=== PATIENT | male | born 1950 | race Caucasian/White ===

== ENCOUNTER 2020-12-04 11:02 | Observation (INO) | payer MEDICARE, SELFPAY ==
[2020-12-04] VITALS (7 sets, daily range): BP systolic 130–184; BP diastolic 64–85; PULSE 52–74; RESP 12–16; TEMP 36.5–36.8; O2SAT 96–99; BMI 36.0
--- NOTE | ~2020-12-04 | XR_ITS ---
EXAMINATION: XR retrograde pyelo w/stent RT EXAM DATE: 12/05/2020 13:23 INDICATION: Right-sided ureteral stone. TECHNIQUE: Fluoroscopy used during XR retrograde pyelo w/stent RT performed by Dr. Cedrick Cassidy MD, urologist. The radiologist Carter Boone M.D. dictating this report of the image(s) available wa s not present for the procedure. Total fluoroscopic time of 44 seconds. The DAP for this procedure was 1342 radcm2. A total of 118 images sent to PACS from the exam. Cine run(s) available for review . FINDINGS: Right ureter was cannulated, injected. Some gas bubbles were introduced. Mild right-sided caliectasis. A double-J ureteral stent was positioned. Correlate with procedure note. IMPRESSION: Mild right caliectasis. Stent in position. Reviewed, dictated and finalized at location B.
--- NOTE | ~2020-12-04 | XR_ITS ---
EXAMINATION: XR abdomen/kub 1V EXAM DATE: 12/05/2020 11:31 INDICATION: Right proximal ureteral stone. TECHNIQUE: Frontal projection of the upper abdomen, frontal projection lower abdomen/pelvis for inter pretation. Correlation is made to CT abdomen pelvis from 12/04/2020 FINDINGS: Correlating with yesterday's CT scan the right ureteral stone should projects more over th e right L4 transverse process assuming no change in position. Difficult to specifically identified on this exam. Nonobstructive bowel gas pattern. Lumbar spondylosis, thoracolumbar diffuse idiopathic sk eletal hyperostosis. IMPRESSION: Can't confidently identify right ureteral stone. Reviewed, dictated and finalized at location B.
--- NOTE | ~2020-12-04 | CT_ITS ---
EXAMINATION: CT abdomen pelvis wo con EXAM DATE: 12/04/2020 12:23 INDICATION: Right-sided pain, kidney stones. TECHNIQUE: Spiral CT of the abdomen and pelvis was performed without contrast. Axial, coronal and s agittal images of the abdomen and pelvis were reviewed. The dose-length product (DLP) for this exami [facility] was 479.85 mGy-cm. The exposure was tailored according to patient size (auto mA exposure cont rol), and iterative reconstruction (ASIR) was used as additional dose reduction technique. Comparison is made to prior examination from 03/27/2018. FINDINGS: Several pancreatic calcifications, consistent with chronic pancreatitis. Splenic granulomas . The liver, spleen, adrenal glands and pancreas are otherwise unremarkable. There is single gallsto ne within an otherwise unremarkable gallbladder. No evidence of obstructive biliary disease. There is 3 x 5 mm stone in the proximal aspect right ureter, mild obstructive nephropathy. No other g enitourinary calcifications identified. The prostate is unremarkable. The bladder is collapsed at t brown of imaging limiting evaluation. There is no retroperitoneal or pelvic lymphadenopathy. There i s mild scattered arteriosclerotic disease. The appendix is normal. There is moderate sigmoid colonic diverticulosis. There is no adjacent infla mmatory change to suggest diverticulitis. The stomach and small bowel are unremarkable. There is exp ected amount of colonic stool. No free intraperitoneal gas. The heart is normal in size. There a re no pericardial or pleural effusions. The lung bases are unremarkable. There are no osteoblastic or osteolytic lesions identified. Thoracic diffuse idiopathic skeletal hyperostosis. IMPRESSION: 1. Right proximal ureteral 3 x 5 mm stone, mild obstructive nephropathy. consultants would apprec iate baseline KUB. 2. Sigmoid diverticulosis. 3. Chronic pancreatitis. 4. Cholelithiasis. Reviewed, dictated and finalized at location A. IMPRESSION: 1. Right proximal ureteral 3 x 5 mm stone, mild obstructive nephropathy. co nsultants would appreciate baseline KUB. 2. Sigmoid diverticulosis. 3. Chronic pancreatitis. 4. Cholelithiasis.
--- NOTE | 2020-12-04 11:51 | ED.ABDPAIN ---
HPI - Abdominal Pain General Chief Complaint: Abdominal Pain Stated Complaint: KIDNEY STONE Time Seen by Provider: 12/04/20 11:44 Source: patient, family and RN notes reviewed Mode of arrival: ambulatory Limitations: no limitations History of Present Illness HPI narrative: Patient 70 years old white male presents with right flank pain that started few hours prior to arrival to the emergency room associated with nausea, pain comes in waves. History of kidney stone. Patient denies any fever chills, urinary symptoms. Patient is fully vaccinated for COVID-19. Related Data Allergies Allergy/AdvReac Type Severity Reaction Status Date / Time No Known Allergies Allergy Unverified 09/28/15 10:28 Review of Systems Review of Systems: CONSTITUTIONAL: Denies fever, chills, or sweats. EYES: Denies visual changes, redness, or discharge. ENT: Denies rhinorrhea, congestion, sore throat, or otalgia. CARDIOVASCULAR: Denies chest pain, palpitations, or edema. RESPIRATORY: Denies cough or dyspnea. GASTROINTESTINAL: Denies abdominal pain, nausea, vomiting, or diarrhea. GENITOURINARY: Denies dysuria or hematuria. SKIN: Denies rash or itching. MUSCULOSKELETAL: Denies back pain, joint pain, or myalgia. NEUROLOGIC: Denies headache, numbness, or weakness. PSYCHIATRIC: Denies anxiety or depression. Exam Narrative: General appearance: Well-developed, well-nourished Skin: Normal color Head: Normocephalic, nontraumatic Eyes: Clear conjunctiva ENT: Oropharynx normal, ears normal, nose normal Neck: Supple, nontender Chest and respiratory: Airway patent, no respiratory distress, no accessory muscle use Heart: Regular rate/rhythm Abdomen: Soft, right flank tenderness Vascular: Normal peripheral pulses, normal capillary refill. Musculoskeletal: Normal range of motion, nontender back Neurologic: Alert and oriented ?3, [employer] is normal as tested, no gross motor deficit Course Course Emergency Course: Stable Consultations Consultation #1: Cedric garcia Date: 12/04/20 Time: 14:40 Vital Signs Vital signs: Vital Signs Temperature 36.6 C 12/04/20 11:33 Pulse Rate 65 12/04/20 11:33 Respiratory Rate 14 12/04/20 11:33 Blood Pressure 184/85 H 12/04/20 11:33 Pulse Oximetry 98 12/04/20 11:33 Temperature 36.6 C 12/04/20 11:33 Pulse Rate 65 12/04/20 11:33 Respiratory Rate 14 12/04/20 11:33 Blood Pressure 184/85 H 12/04/20 11:33 Pulse Oximetry 98 12/04/20 11:33 MDM - Abdominal Pain MDM Narrative Medical decision making narrative: Kidney stone is my concern. Labs, CT abdomen pelvis without contrast, IV fluid, IV morphine and Zofran ordered Critical Care Time Critical Care Time Critical Care Time: Yes Total Critical Care Time: 35 Discharge Plan Discharge Clinical Impression: Ureterolithiasis Patient Disposition: Still a Patient Condition: Stable Instructions: Antibiotic Form Additional Instructions: Admit to hospitalist consult Dr. Kim Follow-up/Referrals: BERNARDINO OLGUIN [Other]
[2020-12-04 12:04] LABS: Basophils Absolute Auto 0.1 K/mm3 (0.0-0.1); Basophils Percent Auto 0.5 % (0.2-1.2); Eosinophils Absolute Auto 0.1 K/mm3 (0-0.3); Eosinophils Percent Auto 1.2 % (0-4.4); Hematocrit 46.9 % (42.0-52.0); Immature Granulocyte Absolute 0.03 K/mm3 (0.00-0.031); Immature Granulocyte Percent A 0.3 % (0-0.5); Lymphocytes Absolute Auto 0.89 K/mm3 (0.9-3.2); Lymphocytes Percent Auto 8.8 % (18.3-44.2); Mean Corpuscular HGB Conc 34.1 g/dl (32-36); Mean Corpuscular Hemoglobin 30.9 pg (26-34); Mean Corpuscular Volume 90.7 fl (80-100); Mean Platelet Volume 10.9 fl (7.4-10.4); Monocytes Absolute Auto 0.7 K/mm3 (0.1-0.6); Monocytes Percent Auto 6.7 % (2.6-8.5); Neutrophils Absolute Auto 8.3 K/mm3 (1.3-6.7); Neutrophils Percent Auto 82.5 % (45.5-73.1); Platelet Count Result 176 k/mm3 (150-375); Red Blood Count 5.17 M/mm3 (4.6-6.20); Red Cell Distribution Width 12.5 % (11.5-14.5); White Blood Count 10.1 K/mm3 (4.5-10.0)
[2020-12-04 12:10] LABS: Add Urine Microscopic? YES; Appearance Urine Clear (Clear); Bilirubin Urine Negative (Negative); Blood Urine 3+ (Negative); Color Urine Yellow (Yellow); Glucose Urine UA 1+ mg/dL (Negative); Ketones Urine 1+ mg/dL (Negative); Leukocyte Esterase Ur Negative LEU/UL (Negative); Mucus Urine Few /lpf; Nitrate Urine Negative (Negative); Protein Urine 2+ mg/dL (Negative); RBC Urine >75 /hpf (0-2); Specific Grav Ur 1.027 (1.001-1.035); Urobilinogen Urine Negative mg/dL (<2.0)
[2020-12-04] MEDS: ONDANSETRON INJ 4 MG/2 ML VIAL IV PUSH ×2 (12:11→15:11)
[2020-12-04] MEDS: MORPHINE SULFATE (*CRX) 4 MG/ML INJ IV PUSH (12:11)
[2020-12-04] MEDS: SODIUM CHLORIDE 0.9% IV 1,000 ML 999 ML IV CONT (12:12)
[2020-12-04 13:10] LABS: Anion Gap 8 mmol/L (8-16); Blood Urea Nitrogen 17 mg/dL (9-20); Calcium 8.9 mg/dL (8.4-10.2); Carbon Dioxide 22 mmol/L (22-30); Chloride 110 mmol/L (98-107); Estimated CRCL calculation 68 ml/min; Estimated Glomerular Filt Rate 60; Glucose 145 mg/dL (65-110); Potassium 4.2 mmol/L (3.4-5.0); Sodium 140 mmol/L (137-145)
[2020-12-04] MEDS: TAMSULOSIN HCL 0.4 MG CAPSULE PO (15:10)
[2020-12-04] MEDS: HYDROmorphone HCL INJ (*CRX) 1 MG/ML SYR 0.5 MG IV PUSH ×2 (15:11→19:40)
[2020-12-04] MEDS: KETOROLAC 15 MG/ML VIAL (*BKC) (15:12)
[2020-12-04] MEDS: SODIUM CHLORIDE 0.9% IV 1,000 ML 100 ML IV CONT (16:44)
--- NOTE | 2020-12-04 17:04 | PM.IMHP ---
H&P: HPI History of Present Illness Date/Time: 12/04/20 17:04 this is a 70-year-old male patient has had multiple kidney stones. Patient stated he had lithotripsy and ESWL in the past any believes he also had a stent. He has seen Dr. Coates as well as Dr. sam and Dr. Sepulveda. The patient came into the emergency room today with complaints of right flank pain that occurred around 2:00 a.m. this morning prior to arriving in the emergency room here. The patient stated that he is having crampy pain and it hurts worse when he moves. He is also nauseated but did not have any vomiting. If he lay still then the pain pretty much subsides. The patient stated that he has had this pain before when he has had his other kidney stones. Abdominal pelvis CT was read as: 1. Right proximal ureteral 3 x 5 mm stone, mild obstructive nephropathy. consultants would appreciate baseline KUB. 2. Sigmoid diverticulosis. 3. Chronic pancreatitis. 4. Cholelithiasis. The patient was given Flomax, dilaudid, Zofran, morphine and IV fluids. Urology has been consulted. Patient is being admitted to inpatient services date of service of 12/05/2019 Chief Complaint: Right flank pain Review of Systems Review of Systems: All systems reviewed & are unremarkable except as noted in HPI and below Constitutional: Constitutional: Reports as per HPI and Reports no additional constitutional complaints Eyes: Eyes: Reports as per HPI and Reports no additional eye complaints ENT: Reports system reviewed and no additional complaints, except as documented and Reports Normal hearing present Cardiovascular: Cardiovascular: Reports no additional cardiovascular complaints Respiratory: Respiratory: Reports no additional respiratory complaints and Reports no additional respiratory complaints Gastrointestinal: Gastrointestinal: Reports as per HPI and Reports no additional gastrointestinal complaints Musculoskeletal: Musculoskeletal: Reports no additional musculoskeletal complaints Integumentary/Breasts: Skin/Breast: Reports system reviewed and no additional complaints, except as docu and Reports as per HPI Neurologic: Reports system reviewed and no additional complaints, except as documented, Reports as per HPI and Reports Normal hearing present Psychiatric: Psychiatric: Reports no additional psychiatric complaints and Reports as per HPI Endocrine: Endocrine: Reports no additional endocrine complaints Hematologic/Lymphatic: Hematologic/Lymphatic: Reports no additional hematologic/lymphatic complaints Allergic/Immunologic: Allergic/Immunologic: Reports no additional allergic/immunologic complaints [facility] Past Medical History Medical History (Updated 12/04/20 @ 17:12 by Michelle Mcbride NP) Hyperlipidemia Surgical History Surgical History (Updated 12/04/20 @ 17:21 by Michelle Mcbride NP) H/O cystoscopy History of back surgery History of coronary artery bypass graft x 3 S/P foot surgery, right Family History Family History (Updated 12/04/20 @ 17:14 by Michelle Mcbride NP) Mother Breast cancer Father Acute myocardial infarction Sibling Cancer Social History Social History (Updated 12/04/20 @ 17:17 by Michelle Mcbride NP) Social History: The patient is and his is the durable power immigration attorney for healthcare. The patient desires to be a full code. The patient has 2 children. 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 The patient is a lifelong nonsmoker. He does not use any alcohol marijuana or illicit drugs. Smoking status: Never smoker Alcohol intake: never Substance use: never Living arrangements: with family Occupation/Education: retired Gender identity (if verbalized by the patient): Male Spiritual care concerns: No Meds Home Medications and Allergies Home Medications Medication Instructions Recorded Confirmed Type diclofenac sodium PO BID 12/04/20 History
--- NOTE | 2020-12-04 17:05 | PC.NURSE ---
Pt admitted to Chest pain center from the ER at 1625. No current complaints
--- NOTE | 2020-12-04 18:25 | PC.NURSE ---
Spoke with patients Raquel to provide update of patient status and phone numbers to unit and room.
[2020-12-05] VITALS (11 sets, daily range): BP systolic 141–177; BP diastolic 67–96; PULSE 57–86; RESP 12–21; TEMP 36.2–36.6; O2SAT 96–100
[2020-12-05] MEDS: SODIUM CHLORIDE 0.9% IV 1,000 ML 100 ML IV CONT (02:48)
[2020-12-05] MEDS: KETOROLAC 15 MG/ML VIAL (*BKC) IV PUSH (03:21)
[2020-12-05] MEDS: HYDROmorphone HCL INJ (*CRX) 1 MG/ML SYR 0.5 MG IV PUSH (04:10)
[2020-12-05 06:25] LABS: Lactic Acid Reflex 0.7 mmol/L (0.7-2.1)
[2020-12-05 06:26] LABS: Alanine Aminotransferase 19 U/L (4-50); Albumin Level 3.4 g/dL (3.5-5.1); Alkaline Phosphatase 81 U/L (38-126); Anion Gap 7 mmol/L (8-16); Aspartate Amino Transferase 35 U/L (17-59); Bilirubin,Total 0.9 mg/dL (0.2-1.3); Blood Urea Nitrogen 15 mg/dL (9-20); Calcium 8.3 mg/dL (8.4-10.2); Carbon Dioxide 24 mmol/L (22-30); Chloride 110 mmol/L (98-107); Estimated CRCL calculation 74 ml/min; Estimated Glomerular Filt Rate > 60; Glucose 128 mg/dL (65-110); Magnesium 2.2 mg/dL (1.6-2.3); Potassium 4.1 mmol/L (3.4-5.0); Sodium 141 mmol/L (137-145)
[2020-12-05 06:46] LABS: Basophils Percent Auto 0.4 % (0.2-1.2); Eosinophils Absolute Auto 0.2 K/mm3 (0-0.3); Eosinophils Percent Auto 2.2 % (0-4.4); Hematocrit 40.8 % (42.0-52.0); Hemoglobin 13.4 g/dL (14.0-18.0); Immature Granulocyte Absolute 0.04 K/mm3 (0.00-0.031); Immature Granulocyte Percent A 0.6 % (0-0.5); Immature Platelet Fraction Pct 6.9 % (0.9-11.2); Lymphocytes Absolute Auto 0.94 K/mm3 (0.9-3.2); Lymphocytes Percent Auto 13.7 % (18.3-44.2); Mean Corpuscular HGB Conc 32.8 g/dl (32-36); Mean Corpuscular Hemoglobin 30.2 pg (26-34); Mean Corpuscular Volume 92.1 fl (80-100); Mean Platelet Volume 11.3 fl (7.4-10.4); Monocytes Absolute Auto 0.7 K/mm3 (0.1-0.6); Monocytes Percent Auto 9.5 % (2.6-8.5); Neutrophils Absolute Auto 5.1 K/mm3 (1.3-6.7); Neutrophils Percent Auto 73.6 % (45.5-73.1); Platelet Count Result 137 k/mm3 (150-375); Red Blood Count 4.43 M/mm3 (4.6-6.20); Red Cell Distribution Width 12.4 % (11.5-14.5); White Blood Count 6.9 K/mm3 (4.5-10.0)
[2020-12-05 07:48] LABS: Free T4 Free Thyroxine Reflex 0.89 ng/dL (0.78-2.19)
--- NOTE | 2020-12-05 08:40 | WPDANESEPPF ---
Anes - Initial Pre Proc Eval Procedure: Operation Date: 12/05/20 14:30 Proposed Procedures p Cystoscopy, Right Ureteroscopy, Right Retrograde Pyelogram, Right Stone Extraction, Possible Right Stent Placement, - Cedrick Cassidy MD s Possible Holmium Laser Procedure - Cedrick Cassidy MD Date/Time: 12/05/20 08:40 Surgeon: Clyde Rosas MD Pre Op Diagnosis: R Ureterolithiasis, Proximal R Urteral Patient Data Age: 70 Gender: M Height: 1.83 m Weight: 120.5 kg Last Vital Signs Temp 36.6 C 12/05/20 07:32 Pulse 57 L 12/05/20 07:32 Resp 16 12/05/20 07:32 BP 141/73 H 12/05/20 07:32 Pulse Ox 96 12/05/20 07:32 Allergies Allergy/AdvReac Type Severity Reaction Status Date / Time No Known Allergies Allergy Unverified 09/28/15 10:28 Home Medications Medication Instructions Recorded Confirmed Type aspirin [Adult Aspirin] 325 mg PO DAILY 12/04/20 12/04/20 History diclofenac sodium 75 mg PO BID 12/04/20 12/04/20 History rosuvastatin [Crestor] 10 mg PO DAILY 12/04/20 12/04/20 History tamsulosin 0.4 mg PO DAILY 12/04/20 12/04/20 History Laboratory Tests 12/04/20 12/04/20 12/04/20 11:53 11:53 12:47 WBC 10.1 K/mm3 H K/mm3 (4.5-10.0) RBC 5.17 M/mm3 M/mm3 (4.6-6.20) Hgb 16.0 g/dL g/dL (14.0-18.0) Hct 46.9 % % (42.0-52.0) MCV 90.7 fl fl (80-100) MCH 30.9 pg pg (26-34) MCHC 34.1 g/dl g/dl (32-36) RDW 12.5 % % (11.5-14.5) Plt Count 176 k/mm3 k/mm3 (150-375) MPV 10.9 fl H fl (7.4-10.4) Immature Gran % (Auto) 0.3 % % (0-0.5) Neut % (Auto) 82.5 % H % (45.5-73.1) Lymph % (Auto) 8.8 % L % (18.3-44.2) Rich % (Auto) 6.7 % % (2.6-8.5) Eos % (Auto) 1.2 % % (0-4.4) Baso % (Auto) 0.5 % % (0.2-1.2) Lymph # (Auto) 0.89 K/mm3 L K/mm3 (0.9-3.2) Rich # (Auto) 0.7 K/mm3 H K/mm3 (0.1-0.6) Eos # (Auto) 0.1 K/mm3 K/mm3 (0-0.3) Baso # (Auto) 0.1 K/mm3 K/mm3 (0.0-0.1) Abs Immat Gran (auto) 0.03 K/mm3 K/mm3 (0.00-0.031) Absolute Neuts (auto) 8.3 K/mm3 H K/mm3 (1.3-6.7) Absolute Nucleated RBC 0.0 K/mm3 K/mm3 (0.0-0.012) Nucleated RBC % 0.0 % % (0.0-0.2) % Immature Plt Fraction Sodium 140 mmol/L mmol/L (137-145) Potassium 4.2 mmol/L mmol/L (3.4-5.0) Chloride 110 mmol/L H mmol/L (98-107) Carbon Dioxide 22 mmol/L mmol/L (22-30) Anion Gap 8 mmol/L mmol/L (8-16) BUN 17 mg/dL mg/dL (9-20) Creatinine 1.20 mg/dL mg/dL (0.7-1.3) Estim Creat Clear Calc 68 ml/min ml/min Estimated GFR 60 (59 - ) Glucose 145 mg/dL H mg/dL (65-110) Lactic Acid Calcium 8.9 mg/dL mg/dL (8.4-10.2) Magnesium Total Bilirubin AST ALT Alkaline Phosphatase Total Protein Albumin TSH (Reflex) Free T4 Total T3 Urine Color Yellow (Yellow) Urine Appearance Clear (Clear) Urine pH 7.0 (5.0-9.0) Ur Specific [place] 1.027 (1.001-1.035) Urine Protein 2+ mg/dL H mg/dL (Negative) Urine Glucose (UA) 1+ mg/dL H mg/dL (Negative) Urine Ketones 1+ mg/dL H mg/dL (Negative) Ur Blood (Man) 3+ H (Negative) Urine Nitrate Negative (Negative) Urine Bilirubin Negative (Negative) Urine Urobilinogen Negative mg/dL mg/dL (<2.0) Leukocyte Esterase Rfl Negative NOÉ/UL NOÉ/UL (Negative) Urine RBC >75 /hpf H /hpf (0-2) Urine WBC 7-9 /hpf H /hpf Urine Mucus Few /lpf H /lpf 12/05/20 12/05/20 12/05/20 06:01 06:01 06:01 WBC RBC
--- NOTE | 2020-12-05 10:19 | WPDUROPN2 ---
Progress Note: A&P Assessment and Plan (1) Calculus of proximal right ureter: Code(s): N20.1 - Calculus of ureter Status: Acute Assessment and Plan: Will plan for cystoscopy, right ureteroscopy, right stone extraction, right stent placement. He tells me he has a history of ureteral stricture on the right. This may complicate ureteroscopy. If I am not able to get the ureteral scope past the stricture I may have to simply leave ureteral stent with definitive stone management to follow. If all goes well he can likely discharge home today. He understands risks of bleeding, infection, damage to the urinary tract, inability of the stone, inability to place the stent. He agrees to proceed. (2) Hydronephrosis: Code(s): N13.30 - Unspecified hydronephrosis Status: Acute (3) Ureteral stricture: Code(s): N13.5 - Crossing vessel and stricture of ureter without hydronephrosis Status: Acute Subjective Subjective Date/Time Seen: 12/05/20 10:19 He states he has not passed stone. He is requiring pain medication to remain comfortable. I discussed observation with a trial of stone passage versus intervention. He opts for intervention in the form of ureteroscopy. Exam Const: General: cooperative, healthy appearing, alert and awake HENMT: Head: normal to inspection Eyes: General: appearance normal, both eyes and all related structures Resp: Effort & Inspection: normal respiratory effort and able to speak in complete sentences Back/Spine/Pelvis: Back: CVA tenderness Skin: General skin exam: normal color Neuro: General: patient oriented x3 Objective Data Vital Signs Vital Signs: Vital Signs - 24 hr 12/04/20 11:33 12/04/20 13:18 12/04/20 14:00 Temperature 97.8 F Pulse Rate 65 52 L 60 Respiratory Rate 14 14 12 Blood Pressure 184/85 H 130/70 Pulse Oximetry 98 99 99 12/04/20 16:22 12/04/20 18:43 12/04/20 20:00 Temperature 98.3 F Pulse Rate 60 63 Respiratory Rate 12 16 Blood Pressure 135/70 152/77 H Pulse Oximetry 98 97 97 12/04/20 23:15 12/05/20 07:32 12/05/20 08:00 Temperature 97.7 F 97.8 F Pulse Rate 74 57 L 57 L Respiratory Rate 16 16 16 Blood Pressure 160/64 H 141/73 H Pulse Oximetry 96 96 96 Intake/Output Intake/Output: Intake & Output 12/02/20 12/03/20 12/04/20 12/05/20 23:59 23:59 23:59 23:59 Intake Total 1410 1000 Output Total 550 450 Balance 860 550 Meds/Results Medications: Active Medications Generic Name Dose Route Start Last Admin Trade Name Freq PRN Reason Stop Dose Admin Diclofenac Sodium 1 applic 12/05/20 09:00 Diclofenac Sodium 1% 100 Gm Gel (*Bkc) TOPICAL QID LIDIA Fentanyl Citrate 25 mcg 12/05/20 08:42 Fentanyl Citrate Inj (*Crx) 100 Mcg/2 Ml Vial IV PUSH Q2M PRN Pain Hydromorphone HCl 0.5 mg 12/04/20 14:51 12/05/20 04:10 Hydromorphone Hcl Inj (*Crx) 1 Mg/Ml Syr IV PUSH 0.5 mg Q4H PRN Administration Pain Rated 7-10 Acetaminophen 650 mg in 65 mls @ 260 mls/hr 12/04/20 14:51 Ofirmev 650 Mg Ivpb IVPB 12/05/20 14:50 Q6H PRN Mild Pain (1-3) or Fever Sodium Chloride 1,000 mls @ 100 mls/hr 12/04/20 14:55 12/05/20 02:48 Normal Saline Iv IV CONT 100 mls/hr .Q10H LIDIA Administration Lactated Ringer's 1,000 mls @ 30 mls/hr 12/05/20 08:45 Lr - Lactated Ringers Iv IV CONT .Q24H LIDIA Lactated Ringer's 1,000 mls @ 30 mls/hr 12/05/20 08:45 Lr - Lactated Ringers Iv IV CONT .Q24H LIDIA Ketorolac Tromethamine 15 mg 12/04/20 14:50 12/05/20 03:21 Ketorolac 15 Mg/Ml Vial (*Bkc) IV PUSH 15 mg Q6H PRN Administration Pain Rated 4-6 Ondansetron HCl 4 mg 12/05/20 08:42 Ondansetron Inj 4 Mg/2 Ml Vial IV PUSH ONCE PRN Nausea Tamsulosin HCl 0.4 mg 12/05/20 09:00 Tamsulosin Hcl 0.4 Mg Capsule PO QAM [facility] Radiology Results: ITS Impressions Abdomen/Pelvis CT 12/04/20 12:38 IMPRESSION: 1. Right proxim
--- NOTE | 2020-12-05 10:22 | WPDHPUPDATE1 ---
History and Physical Update Update Date/Time: 12/05/20 10:22 History and Physical has been reviewed, including an updated exam of the patient. There are NO changes in the patient's condition. Risks, benefits, and alternatives have been discussed and questions answered. Patient agrees to proceed with procedure.
--- NOTE | 2020-12-05 11:05 | PM.IMPN ---
Progress Note: A&P Assessment and Plan (1) Ureterolithiasis: Code(s): N20.1 - Calculus of ureter Status: Acute Assessment and Plan: Continue with IV fluids. Continue with pain medication. Continue with Flomax. Urology has been consulted. Strain all urine. plan for cystoscopy w/ likely stent placement today appreciate post-op care recs scd for dvt ppx prior to procedure (2) Hyperlipidemia: Code(s): E78.5 - Hyperlipidemia, unspecified Status: Chronic Assessment and Plan: When his home doses available we can continue with this dosage at this time I do not know his dosage on the Crestor. We can resume that when his dosages available. (3) Calculus of proximal right ureter: Code(s): N20.1 - Calculus of ureter Status: Acute Additional Plan will discuss with urology regarding discharge plan - tomorrow vs later today based on their preference & pt's clinical course Time Spent With Patient Time with patient: less than 15 minutes Subjective Date/time seen: 12/05/20 11:05 no acute medical complaints resting post-op Review of Systems Review of Systems: All systems reviewed & are unremarkable except as noted in HPI and below Exam Const: General: no acute distress Neck: Neck: no JVD Resp: Effort & Inspection: normal respiratory effort Auscultation: clear to auscultation bilaterally Cardio: Rate: regular rate Rhythm: regular rhythm Objective Data Vital Signs Vital Signs: Vital Signs - 24 hr 12/04/20 11:33 12/04/20 13:18 12/04/20 14:00 Temperature 97.8 F Pulse Rate 65 52 L 60 Respiratory Rate 14 14 12 Blood Pressure 184/85 H 130/70 Pulse Oximetry 98 99 99 12/04/20 16:22 12/04/20 18:43 12/04/20 20:00 Temperature 98.3 F Pulse Rate 60 63 Respiratory Rate 12 16 Blood Pressure 135/70 152/77 H Pulse Oximetry 98 97 97 12/04/20 23:15 12/05/20 07:32 12/05/20 08:00 Temperature 97.7 F 97.8 F Pulse Rate 74 57 L 57 L Respiratory Rate 16 16 16 Blood Pressure 160/64 H 141/73 H Pulse Oximetry 96 96 96 Intake/Output Intake/Output: Intake & Output 12/02/20 12/03/20 12/04/2012/05/21 23:59 23:59 23:59 23:59 Intake Total 1410 1000 Output Total 550 600 Balance 860 400 Meds/Results Medications: Active Medications Generic Name Dose Route Start Last Admin Trade Name Freq PRN Reason Stop Dose Admin Diclofenac Sodium 1 applic 12/05/20 09:00 12/05/20 10:20 Diclofenac Sodium 1% 100 Gm Gel (*Bkc) TOPICAL Not Given QID [facility] Fentanyl Citrate 25 mcg 12/05/20 08:42 Fentanyl Citrate Inj (*Crx) 100 Mcg/2 Ml Vial IV PUSH Q2M PRN Pain Hydromorphone HCl 0.5 mg 12/04/20 14:51 12/05/20 04:10 Hydromorphone Hcl Inj (*Crx) 1 Mg/Ml Syr IV PUSH 0.5 mg Q4H PRN Administration Pain Rated 7-10 Acetaminophen 650 mg in 65 mls @ 260 mls/hr 12/04/20 14:51 Ofirmev 650 Mg Ivpb IVPB 12/05/20 14:50 Q6H PRN Mild Pain (1-3) or Fever Sodium Chloride 1,000 mls @ 100 mls/hr 12/04/20 14:55 12/05/20 02:48 Normal Saline Iv IV CONT 100 mls/hr .Q10H [facility] Administration Lactated Ringer's 1,000 mls @ 30 mls/hr 12/05/20 08:45 Lr - Lactated Ringers Iv IV CONT .Q24H LIDIA Lactated Ringer's 1,000 mls @ 30 mls/hr 12/05/20 08:45 Lr - Lactated Ringers Iv IV CONT .Q24H [facility] Ketorolac Tromethamine 15 mg 12/04/20 14:50 12/05/20 03:21 Ketorolac 15 Mg/Ml Vial (*Bkc) IV PUSH 15 mg Q6H PRN Administration Pain Rated 4-6 Ondansetron HCl 4 mg 12/05/20 08:42 Ondansetron Inj 4 Mg/2 Ml Vial IV PUSH ONCE PRN Nausea Tamsulosin HCl 0.4 mg 12/05/20 09:00 12/05/20 10:20 Tamsulosin Hcl 0.4 Mg Capsule PO Not Given QAM [facility] Radiology Results: ITS Impressions Abdomen/Pelvis CT 12/04/20 12:38 IMPRESSION: 1. Right proximal ureteral 3 x 5 mm stone, mild obstructive nephropathy. consultants would appreciate baseline KUB. 2. Sigmoid diverticulosis. 3. Chronic p
--- NOTE | 2020-12-05 11:16 | PC.NURSE ---
patient sent to xray for KUB via transporter. From xray, pt is to be transported to preop. Chart with surgical consent sent with patient.
--- NOTE | 2020-12-05 11:21 | ECG_ITS ---
Measurements Intervals [place] Rate: 73 P: CT: 0 QRS: -9 QRSD: 113 T: 58 QT: 437 QTc: 483 Interpretive Statements SINUS RHYTHM WITH MARKED SINUS ARRHYTHMIA CONSIDER INFERIOR INFARCT, AGE INDETERMINATE BORDERLINE ST ABNORMALITY- HIGH LATERAL LEADS ABNORMAL ECG Electronically Signed On 12-05-2020 12:19:37 CDT by Dejuan Berg D.O.
[2020-12-05] MEDS: LACTATED RINGERS 1,000 ML 30 ML IV CONT (11:40)
[2020-12-05] MEDS: ceFAZolin 3 GM/D5W 100 ML 100 ML IVPB (12:25)
[2020-12-05] MEDS: LIDOCAINE HCL 2% GEL UROJET 10 ML PKG MUCOUS MEM (13:13)
--- NOTE | 2020-12-05 13:27 | W.PM.PROC2 ---
Procedure Note - Detailed Date of Procedure 12/05/20 Pre-op Diagnosis Right ureteral stone Post-op Diagnosis same Procedure Performed Cystoscopy, right retrograde pyelogram, right ureteroscopy, holmium laser lithotripsy, stone extraction, stent placed Surgeon Cedrick Cassidy MD Anesthesia general Indications A gentleman with a ureteral stone. He has a self-reported ureteral stricture as well. Findings Distal ureteral stricture noted. Stone fragmented and extracted. Stent placed Description of Procedure He was correctly identified. Informed consent obtained. From the operating room. He was given general anesthesia. He was prepped and draped in a sterile fashion. He was given appropriate perioperative antibiotics. A time-out performed. I performed cystoscopy. He had enlarged prostate with some obstructing lobes. Bladder had mild trabeculations. There was no other bladder abnormalities. I did a gentle retrograde pyelogram on the right to outline ureteral anatomy. A distal ureteral stricture was noted. It was quite short but very narrow. There was minimal hydronephrosis proximal to the stricture. I placed a guidewire to the kidney. I dilated the ureter the 810 dilator. I performed rigid ureteroscopy. I was unable to get past the stricture to visualize the stone. I then performed flexible ureteroscopy I was able to get a few cm higher. I was able to visualize the stone. I fragmented the stone with the holmium laser. I then used a basket to extract all fragments. Again the stone seemed to be hung up at the ureteral stricture. There was no damage to the ureter during the procedure. I then placed a 4.8 variable length stent. Proximal coil in the upper pole kidney. Distal coil in the bladder. The bladder was drained. He was awakened transferred to PACU in stable condition. Implants Ureteral stent Estimated Blood Loss 1 Drains No Packing No Pathology yes (Stone material) Complications No immediate complications Condition stable Disposition PACU
[2020-12-05] MEDS: PHENAZOPYRIDINE HCL 100 MG TABLET 200 MG PO (16:46)
[2020-12-05] MEDS: DICLOFENAC SOD 75 MG TABLET.EC PO (16:46)
--- NOTE | 2020-12-16 18:24 | PM.DS ---
DS: Admitting Diagnosis Discharge Date 12/05/20 Admitting Diagnosis calculus ureter DS: Discharge Diagnosis Discharge Diagnosis (1) Hydronephrosis: Code(s): N13.30 - Unspecified hydronephrosis Status: Acute (2) Calculus of proximal right ureter: Code(s): N20.1 - Calculus of ureter Status: Acute DS: Summary Hospital Course Reason for hospitalization: ureteral calculus Hospital Course: 70-year-old man with self-reported ureteral stricture presenting with ureteral calculus. Taken to or with urology, cystoscopy showing enlarged prostate with some obstructing lobes. Ureteroscopy attempted, however unable to visualize the stone due to patient's known stricture. But flexible ureteroscopy able to identify stone, stone was fragmented with laser, stone basket used to extract fragments. Stent placed. Stable postoperative course. Discharge patient with pain medication, Flomax. Strain all urine. Close follow-up with Urology and primary care. Status at Discharge Functional status at discharge: independent ambulation Time Spent with Patient Time attestation: Total time spent providing and/or coordinating discharge services: Time spent: Less than 30 minutes Exam Const: General: no acute distress Neck: Neck: no JVD Resp: Effort & Inspection: normal respiratory effort Auscultation: clear to auscultation bilaterally Cardio: Rate: regular rate Rhythm: regular rhythm GI: GI Palp: Yes Soft to palpation and No Tenderness to palpation present (GI) DS: Data Data Completed and Pending Completed studies during hospitalization: Pending at discharge 12/05/20 13:09 Surgical [PTH] Routine Discharge Plan Discharge Attending physician on discharge: Michelle Mcbride Consulting providers: ; Michelle Mcbride ; Carter Boone ; Cedrick Cassidy ; Dejuan Berg Discharging Clinician: Cedrick Cassidy Anticipated Discharge Date/Time: 12/05/20 13:25 Patient Disposition: Home, Self-Care Activity: no shower Diet: as tolerated Discharge Instructions: Follow-up with urology in [address] Coates [phone] Patient Instructions: Antibiotic Form, Phenazopyridine (By mouth), Hydrocodone/Acetaminophen (By mouth), Ureteral Stent Placement (DC) Stand Alone Forms: General Discharge Information Follow-up/Referrals: Jay Coates MD [Physician] - 2 Weeks (Call for Appointment) Discharge Medications: New phenazopyridine [Pyridium] 200 mg tablet 200 mg PO TID PRN (Reason: pain) Qty: 30 RF: 0 hydrocodone-acetaminophen 5-325 mg tablet 1 tablet PO Q4H PRN (Reason: pain) Qty: 30 RF: 0 Continued tamsulosin 0.4 mg capsule 0.4 mg PO DAILY RF: 0 diclofenac sodium 75 mg tablet,delayed release (DR/EC) 75 mg PO BID RF: 0 rosuvastatin [Crestor] 10 mg tablet 10 mg PO DAILY RF: 0 aspirin 81 mg Tablet 325 mg PO DAILY RF: 0 Date of admission: 12/04/20 15:09 Admitting Provider: Clyde Rosas Attending physician on admission: Clyde Rosas Condition: Stable Quality VTE Prophylaxis VTE prophylaxis: mechanical ordered
== END 2020-12-05 17:39 | disposition home or self-care (01) ==
LOC: ANHED 14:40 → ANHCPC 15:24
PROVIDERS: Nurse Practitioner; Urology; Admitting Provider Internal Medicine Nephrology; Emergency Provider Emergency Medicine; Visit Provider Internal Medicine Nephrology
PROC: (CPT 52352; principal; 2020-12-05 14:30)
PROC: (CPT 52356; 2020-12-05 14:30)
DX: N13.2 Hydronephrosis with renal and ureteral calculous obstruction (principal); K57.30 Diverticulosis of large intestine without perforation or abscess without bleeding; K86.1 Other chronic pancreatitis; K80.20 Calculus of gallbladder without cholecystitis without obstruction; E78.5 Hyperlipidemia, unspecified
CPT/HCPCS: 52356; 36415; 74018; 74176; 74420; 80048; 80053; 81001; 82365; 83605; 83735; 84439; 84443; 84480; 85025; 85055; 87086; 87088; 88300; 93005; 96361; 96374; 96375; 96376; 99285; A9270; C1769; C2617; G0378; J0690; J1100; J1170; J1885; J2270; J2405; J2704; J3010; J7030; J7120; Q9966